=== PATIENT | female | born 1990 | race Caucasian/White ===

== ENCOUNTER 2025-07-15 22:58 | Observation (INO) | payer BC, SELFPAY ==
[2025-07-15 19:17] VITALS: BP 115/78
[2025-07-15 19:34] LABS: Hematocrit 39.6 % (37.0-47.0); Hemoglobin 13.6 g/dL (12.0-16.0); Mean Corp Hgb Conc. 34.3 g/dL (33.0-37.0); Mean Corpuscular Volume 85.3 fL (81.0-99.0); Nucleated Red Blood Cells % 0 %; Platelet Count 240 10^3/uL (130-400); Red Cell Dist. Width 13.3 % (11.5-14.5)
[2025-07-15 19:45] VITALS: BP 130/73
[2025-07-15 19:56] LABS: HCG, Serum Qualitative Screen Negative
[2025-07-15 20:00] VITALS: BP 136/65
[2025-07-15 20:00] LABS: ALT (SGPT) 15 U/L (0-35); AST (SGOT) 20 U/L (14-36); Albumin 4.8 g/dl (3.5-5.0); Alkaline Phosphatase 56 U/L (38-126); Blood Urea Nitrogen 13 mg/dl (7-17); Calcium 10.5 mg/dl (8.4-10.2); Carbon Dioxide 26 mmol/L (22-30); Chloride 101 mmol/L (98-107); Glucose 113 mg/dl (70-99); Lipase 27 U/L (23-300); Potassium 4.3 mmol/L (3.5-5.1); Sodium 135 mmol/L (135-145); Total Protein 7.7 g/dl (6.3-8.2); eGFR > 60.00
[2025-07-15 20:12] VITALS: BMI 29.3
--- NOTE | 2025-07-15 20:13 | ED.GENMED ---
History of Present Illness
<Rebecca Sen PA-C - Last Filed: 07/16/25 00:54>
General
Chief Complaint: Abdominal Symptoms
Source: patient
Exam Limitations: none
Time Seen by Provider: 07/15/25 19:51
History of Present Illness
History of Present Illness:
34yoF with no significant past medical history presenting with her for evaluation of abdominal pain. She initially started with generalized abdominal cramping yesterday afternoon. Pain has since migrated to the right lower quadrant and is
now severe. Pain is worse with any sort of movement. Pain radiates to the bilateral lower back. She has tried Pepto-Bismol without any relief. She is also having nausea and had vomited several times today. She reports decreased urination due to
poor p.o. intake but denies any UTI symptoms. She had some mild diarrhea earlier today. No fevers, vaginal bleeding, vaginal discharge. LMP was 1 week ago. Prior abdominal surgeries include section x3.
Past History
<Rebecca Sen PA-C - Last Filed: 07/16/25 00:54>
Past History
ED Past Medical History: None
Social History
Tobacco: Non-smoker
Living: with family
Phy Exam
<Rebecca Sen PA-C - Last Filed: 07/16/25 00:54>
Physical Exam
Physical Exam:
Patient in significant discomfort and moaning
General Physical Exam
General Presentation: moderate distress
General Skin: dry and cool
General Habitus: normal
General Mental: alert
ENT Exam
ENT Exam: normocephalic
Pulmonary Exam
Pulmonary Exam: no respiratory distress
Gastrointestinal Exam
Gastrointestinal Exam: soft, non distended and other (+Significant tenderness in RLQ with rebound tenderness )
Neurological Exam
Neurological Exam: alert
[place] Coma Scale
Eye Opening: Spontaneous
Verbal Response: Oriented
Motor Response: Obeys Commands
GCS Total Score: 15
Skin Exam
Skin Exam: normal color and warm/dry
Psychiatric Exam
Psychiatric Exam: normal mood/affect
Course
<Rebecca Sen PA-C - Last Filed: 07/16/25 00:54>
Orders/Labs/Results
Orders:
Orders
07/15/25 19:21
Test Result ONCE
07/15/25 19:27
Complete Blood Count/With Diff Urgent
Comprehensive Metabolic Panel Urgent
HCG, Serum Qualitative Screen Urgent
Lipase Urgent
07/15/25 20:12
CT Abd/pelvis W Iv Cont Urgent
Comment:
Reason For Exam: RLQ pain
0.9% Sodium Chloride 1000 ml [Nss] 1,000 ml IV BOLUS
HYDROmorphone [Dilaudid] 0.5 mg IV NOW STA
Ketorolac [Toradol] 15 mg IV NOW STA
Ondansetron Injectable [Zofran] 4 mg IV NOW STA
07/15/25 22:10
Piperacillin/Tazo 4.5 Gram [Zosyn] 4.5 gram in 100 ml IV NOW
07/15/25 22:36
Admit/Transfer Patient As Directed
Co-Sign Provider:
Level of Care: Observation services
Assign to:: Medical/Surgical
Physician / Group: dr liao
Diagnosis: acute appendicitis
PRN Pain Medication Management As Directed
May give lesser potent ordered pain med per pt: Yes
preference::
Protocol:: Medication orders for pain may be administered in a
manner that supports deferring to patient preference
when the pt is:
- Requesting an ordered lesser potent pain medication.
Least to most potent pain medications are defined
as: acetaminophen < NSAID < tramadol < opioids
(morphine, oxycodone, hydromorphone).
- Requesting a lesser dose of the same medication IF
ORDERED.
- Requesting a less intrusive route of administration
if both routes are prescribed by the provider (PO <
IV).
07/15/25 22:38
Code Status As Directed
Resuscitation Status: Full Code
07/15/25 23:38
0.9% Sodium Chloride 1000 ml [Nss] 1,000 ml IV 100 mls/hr
Acetaminophen [Tylenol] 650 mg PO Q4HPRN PRN
HYDROmorphone [Dilaudid] 0.5 mg IV Q2HPRN PRN
Ketorolac [Toradol] 10 mg IV Q6HPRN PRN
Ondansetron Injectable [Zofran] 4 mg IV Q6HPRN PRN
07/15/25 23:38
Activity As Directed
Activity Level: Out of Bed-Early Mobility
Anti-embolism (MARQUES) Hose As Directed
Type: Thigh high
Intake/ Output As Directed
Frequency: Per unit guidelines
Pneumatic Compression Sleeves As Directed
Type: Thigh high
Vital Signs As Directed
Frequency: Per unit guidelines
Rx Incentive Spirometry [RESP] Routine
Frequency: q1h while awake
# of times per hour: 10
DX Deep Vein Thrombosis Video Routine
07/16/25 04:00
Piperacillin/Tazo 3.375 Gram [Zosyn] 3.375 gram in 50 ml IV Q6H
07/16/25 Breakfast
NPO
Allow oral meds: Yes
Allow clear liquids: Sips of Clears
NPO with Ice Chips: Yes
NPO for procedure after (time): 07/16/25 0000
Complete Blood Count/With Diff IN AM
Comprehensive Metabolic Panel IN AM
Abnormal Lab Results
07/15/25
19:27
WBC 11.7 H 10^3/uL
(4.8-10.8)
MPV 11.0 H fL
(7.4-10.4)
Abs Immat Gran (auto) 0.1 H 10^3/uL
(0-0.05)
Absolute Neuts (auto) 9.9 H 10^3/uL
(1.4-6.5)
Neutrophils % 84.8 H %
(42.2-75.2)
Lymphocytes % 10.5 L %
(20.5-51.1)
Glucose 113 H mg/dl
(70-99)
Calcium 10.5 H mg/dl
(8.4-10.2)
07/15/25 19:27
07/15/25 19:27
Vital Signs
Initial and Last Documented VS:
Initial Vital Signs
Temp Pulse Resp BP Pulse Ox
97.2 F 83 22 115/78 98
07/15/25 19:17 07/15/25 19:17 07/15/25 19:17 07/15/25 19:17 07/15/25 19:17
Last Documented Vital Signs
Temp Pulse Resp BP Pulse Ox
100.4 F H 99 18 117/70 99
07/16/25 00:30 07/15/25 23:51 07/15/25 23:51 07/15/25 23:51 07/15/25 23:51
<Jason Alcazar MD - Last Filed: 07/15/25 23:10>
Orders/Labs/Results
Orders:
Orders
07/15/25 19:21
Test Result ONCE
07/15/25 19:27
Complete Blood Count/With Diff Urgent
Comprehensive Metabolic Panel Urgent
HCG, Serum Qualitative Screen Urgent
Lipase Urgent
07/15/25 20:12
CT Abd/pelvis W Iv Cont Urgent
Comment:
Reason For Exam: RLQ pain
0.9% Sodium Chloride 1000 ml [Nss] 1,000 ml IV BOLUS
HYDROmorphone [Dilaudid] 0.5 mg IV NOW STA
Ketorolac [Toradol] 15 mg IV NOW STA
Ondansetron Injectable [Zofran] 4 mg IV NOW STA
07/15/25 22:10
Piperacillin/Tazo 4.5 Gram [Zosyn] 4.5 gram in 100 ml IV NOW
07/15/25 22:36
Admit/Transfer Patient As Directed
Co-Sign Provider:
Level of Care: Observation services
Assign to:: Medical/Surgical
Physician / Group: dr liao
Diagnosis: acute appendicitis
PRN Pain Medication Management As Directed
May give lesser potent ordered pain med per pt: Yes
preference::
Protocol:: Medication orders for pain may be administered in a
manner that supports deferring to patient preference
when the pt is:
- Requesting an ordered lesser potent pain medication.
Least to most potent pain medications are defined
as: acetaminophen < NSAID < tramadol < opioids
(morphine, oxycodone, hydromorphone).
- Requesting a lesser dose of the same medication IF
ORDERED.
- Requesting a less intrusive route of administration
if both routes are prescribed by the provider (PO <
IV).
07/15/25 22:38
Code Status As Directed
Resuscitation Status: Full Code
07/15/25 23:38
0.9% Sodium Chloride 1000 ml [Nss] 1,000 ml IV 100 mls/hr
Acetaminophen [Tylenol] 650 mg PO Q4HPRN PRN
HYDROmorphone [Dilaudid] 0.5 mg IV Q2HPRN PRN
Ketorolac [Toradol] 10 mg IV Q6HPRN PRN
Ondansetron Injectable [Zofran] 4 mg IV Q6HPRN PRN
07/15/25 23:38
Activity As Directed
Activity Level: Out of Bed-Early Mobility
Anti-embolism (MARQUES) Hose As Directed
Type: Thigh high
Intake/ Output As Directed
Frequency: Per unit guidelines
Pneumatic Compression Sleeves As Directed
Type: Thigh high
Vital Signs As Directed
Frequency: Per unit guidelines
Rx Incentive Spirometry [RESP] Routine
Frequency: q1h while awake
# of times per hour: 10
DX Deep Vein Thrombosis Video Routine
07/16/25 04:00
Piperacillin/Tazo 3.375 Gram [Zosyn] 3.375 gram in 50 ml IV Q6H
07/16/25 Breakfast
NPO
Allow oral meds: Yes
Allow clear liquids: Sips of Clears
NPO with Ice Chips: Yes
NPO for procedure after (time): 07/16/25 0000
Complete Blood Count/With Diff IN AM
Comprehensive Metabolic Panel IN AM
Abnormal Lab Results
07/15/25
19:27
WBC 11.7 H 10^3/uL
(4.8-10.8)
MPV 11.0 H fL
(7.4-10.4)
Abs Immat Gran (auto) 0.1 H 10^3/uL
(0-0.05)
Absolute Neuts (auto) 9.9 H 10^3/uL
(1.4-6.5)
Neutrophils % 84.8 H %
(42.2-75.2)
Lymphocytes % 10.5 L %
(20.5-51.1)
Glucose 113 H mg/dl
(70-99)
Calcium 10.5 H mg/dl
(8.4-10.2)
07/15/25 19:27
07/15/25 19:27
Vital Signs
Initial and Last Documented VS:
Initial Vital Signs
Temp Pulse Resp BP Pulse Ox
97.2 F 83 22 115/78 98
07/15/25 19:17 07/15/25 19:17 07/15/25 19:17 07/15/25 19:17 07/15/25 19:17
Last Documented Vital Signs
Temp Pulse Resp BP Pulse Ox
100.4 F H 99 18 117/70 99
07/16/25 00:30 07/15/25 23:51 07/15/25 23:51 07/15/25 23:51 07/15/25 23:51
<Rebecca Sen PA-C - Last Filed: 07/16/25 00:54>
MDM/Problems Addressed
Differential Diagnosis Includes:
34yoF here with abd pain. Generalized pain yesterday, now migrated to RLQ. Worse with any type of movement. VSS. Patient in significant discomfort on initial exam with rebound tenderness. Differential diagnosis includes: Appendicitis, ovarian cyst,
kidney stone
Initial ED plan: Lab work obtained in triage. White count is mildly elevated 11.7. Remainder of labs normal and hCG testing negative. Will proceed with CT abdomen. IV Dilaudid
<Rebecca Sen PA-C - Last Filed: 07/16/25 00:54>
*Pulse Oximetry
SaO2: 99
Oxygen Mode of Delivery: Room air
Patient hypoxic: no
*Critical Care Note
Total Time (30-74mins, 75-104mins- exclusive of procedures): Not Applicable
<Rebecca Sen PA-C - Last Filed: 07/16/25 00:54>
Update Note
Update Note:
CT shows acute appendicitis. Case discussed with general surgeon, Dr. Liao. IV Zosyn ordered and patient admitted for further management.
ED Attending Note
<Rebecca Sen PA-C - Last Filed: 07/16/25 00:54>
-
Portions of this chart may have been created with voice recognition software.� Occasional wrong word or��sound alike� substitutions may have occurred due to the inherent limitations of voice recognition software.
<Jason Alcazar MD - Last Filed: 07/15/25 23:10>
ED Attending Note
Patient seen and examined by attending physician: Yes
ED Attending Note:
I have seen and evaluated the patient with a [id number] encounter. I have spoken to the advance practicer provider and involved in the medical history, the physical exam, medical decision making.
Evaluation and management service: agree unless noted differently below.
Results interpretation: agree unless noted differently below.
Focused HPI: 34-year-old female with no significant chronic medical issues presents for evaluation of abdominal pain with nausea and vomiting. Pain located in the right lower quadrant. Started yesterday and worse today. No similar symptoms in the
past.
Physical exam: Awake and alert, nontoxic. Vital signs normal. Abdomen soft, markedly tender in the right lower quadrant.
Medical Decision Makin-year-old female presents with right lower quadrant abdominal pain associated with nausea and vomiting. Labs here showed a leukocytosis with predominant neutrophils. Her hCG is negative. Her CT was concerning for
appendicitis. Admitted to surgical service. IV antibiotics and pain control in the meantime.
Discharge Plan
Departure
Patient Disposition: Admit
Date of Disposition: 07/15/25
Time of Disposition: 22:29
Presentation/result/management discussed w/ accepting MD/DO: Dr. Liao
Discharge Problem:
Acute appendicitis
Interventions
Interventions:
*General Assessment Last Done: 07/15/25 19:17
*Neglect/Abuse Screening Last Done: 07/15/25 19:17
*ED COVID-19 Vaccine History Last Done: 07/15/25 20:45
*ED Influenza Vaccine History Last Done: 07/15/25 20:45
[facility] Risk Assessment Tool Last Done: 07/15/25 20:45
*Risk Screen - Suicide (C-SSRS) Last Done: 07/15/25 19:17
*Nursing Disposition Last Done: 07/15/25 23:48
JN-Ilubzc-Nqwzoszype Assessment Last Done: 07/15/25 19:57
Discharge Date and Time
Discharge Date/Time: 07/15/25 23:48
[2025-07-15] MEDS: DILAUDID 0.5 MG IV ×2 (20:14→23:14)
[2025-07-15] MEDS: ZOFRAN 4 MG IV (20:15)
[2025-07-15] MEDS: TORADOL 15 MG IV (20:15)
[2025-07-15] MEDS: NSS 1000 IV (20:16)
[2025-07-15] MEDS: ZOSYN 100 IV (22:27)
--- NOTE | 2025-07-15 23:24 | HPS.HSE ---
Addendum entered and electronically signed by Sami Claire MD 07/16/25 09:29:
I saw and examined the patient.
The Dining Room Attendant's note was reviewed and I agree with the note.
Comment: Acute onset generalized abd pain with migration to rlq. Denies anorexia, denies f/c/n/v. Mild leukocytosis noted. CT c/w acute appendicitis. Informed consent obtained. OCTR for lap appy. IV abx.
Original Note:
Family Physician
-
Family Physician: NOT KNOW UNKNOWN - PT DOES
Chief Complaint
-
abd pain,bloating
History of Present Illness
34yoF with no significant past medical history presenting with her for evaluation of abdominal pain and bloating. She initially started with generalized abdominal cramping yesterday afternoon. Pain has since migrated to the right lower
quadrant and is now severe. Pain is worse with any sort of movement. Pain radiates to the bilateral lower back. She has tried Pepto-Bismol without any relief. She is also having nausea and had vomited several times today. She reports decreased
urination due to poor p.o. intake but denies any UTI symptoms. She had some mild diarrhea earlier today. Has had chills but No fevers, vaginal bleeding, vaginal discharge. LMP was 1 week ago. Prior abdominal surgeries include section
x3.
CT abd: IMPRESSION:
Acute appendicitis.
No CT evidence for perforation or periappendiceal abscess.
WBC 11.7 with left shift
pain better after dilaudid
Zosyn initiated in ED
Medical History
Past Medical History
Past Medical History: Reports None
Past Surgical History: Reports ( x3)
Social History
Tobacco: Non-smoker
Alcohol: Occasional
Drug: None
Personal:
Living: With Family
Employment: Employed
Family History
Family History: Not pertinent
Allergies / Home Medications
Allergies reflects when Allergies were last updated in [facility].
Home Medications with original date entered in [facility]
Allergy/Medication List:
Allergies
Allergy/AdvReac Type Severity Reaction Status Date / Time
chlorhexidine Allergy Rash Verified 07/15/25 19:17
Home Medications
denies medications
Review of Systems
-
History Source: Patient
A 12 point ROS was completed and negative except as noted: Yes
Constitutional: Reports Chills
EENT: Reports No Symptoms
Respiratory: Reports No Symptoms
Cardiac: Reports No Symptoms
Abdomen/GI: Reports Abdominal Pain (was 10/10 on arrival now 5/10 after meds), Nausea, Diarrhea (a couple times) and Anorexia
: Reports No Symptoms
Musculoskeletal: Reports No Symptoms
Skin: Reports No Symptoms
Neurological: Reports No Symptoms
Endocrine: Reports No Symptoms
Hematologic/Lymphatic: Reports No Symptoms
Psych: Reports No Symptoms
Physical Exam
Vital Signs
Vital Signs
Temp Pulse Resp BP Pulse Ox
97.2 F 88 14 136/65 98
07/15/25 19:17 07/15/25 23:15 07/15/25 23:15 07/15/25 20:00 07/15/25 23:15
Physical Exam
General: Well Developed, Well Nourished, No Apparent Distress, Comfortable, Pain (5/10) and Chills
HEENT: NormoCephalic and Moist mucous membranes
Respiratory: Clear and Non Labored Respirations
Cardiac: S1/S2 and Regular Rhythm
Breast: Deferred by me
GI: Soft
Rectal: Deferred by Provider
Genito-urinary: Deferred by me
Musculoskeletal: No Clubbing and No Cyanosis
Skin: Warm and Dry
Neuro: Awake, Alert, Oriented, AO x 3 and No Motor Deficits
Hematologic/Lymphatic: No Lymphadenopathy
Psych: Calm and Intact Judgment/Insight
Laboratory Results
-
07/15/25 19:27
07/15/25 19:
Laboratory Results
Total Bilirubin 0.6 mg/dl (0.2-1.3) 07/15/25 19:
AST 20 U/L (14-36) 07/15/25 19:
ALT 15 U/L (0-35) 07/15/25 19:
Alkaline Phosphatase 56 U/L (38-126) 07/15/25 19:
Lipase 27 U/L (23-300) 07/15/25 19:
Data Reviewed
-
CT Scan: Report Reviewed by me and Discussed with Physician
Lab Data: Labs Reviewed by me
Impression/Plan
-
IMPRESSION:
34 yo female with abd pain since yesterday found to have acute appendicitis w/o perforation
PLAN:
Admit to service of Dr Liao
Med surg obs
#acute appendicitis w/o perforation
-NPO x meds after midnight--> OR in am timing TBD
-ivf: nss@100
-cont zosyn q6h
-pain control: tylenol, dilaudid and toradol prn
-zofran prn
DVT prophylaxisis: scd
Full code
[2025-07-15 23:43] VITALS: BMI 29.0
[2025-07-15 23:51] VITALS: BP 117/70
[2025-07-16] VITALS (11 sets, daily range): BP systolic 87–110; BP diastolic 43–57; BMI 29.0
[2025-07-16] MEDS: TYLENOL 650 MG PO (00:33)
[2025-07-16] MEDS: NSS 1000 IV ×2 (00:34→11:00)
[2025-07-16] MEDS: ZOSYN 50 IV ×2 (03:22→15:06)
[2025-07-16] MEDS: TORADOL 10 MG IV (03:37)
--- NOTE | 2025-07-16 04:05 | PTCARENOTE ---
Patient was brought from ED at 2335 dx of acute appendicitis. C/o 4/10 pain to abdomen but stated it was manageable. VSS. Assessment as documented. Patient and spouse made aware of plan of care. Call barbosa within reach, bed in lowest position.
[2025-07-16 06:39] LABS: Hematocrit 35.0 % (37.0-47.0); Hemoglobin 12.1 g/dL (12.0-16.0); Mean Corp Hgb Conc. 34.6 g/dL (33.0-37.0); Mean Corpuscular Volume 86.8 fL (81.0-99.0); Nucleated Red Blood Cells % 0 %; Platelet Count 208 10^3/uL (130-400); Red Cell Dist. Width 13.5 % (11.5-14.5)
[2025-07-16] MEDS: DILAUDID 0.5 MG IV (07:08)
[2025-07-16] MEDS: ZOFRAN 4 MG IV (07:09)
[2025-07-16 07:12] LABS: ALT (SGPT) 13 U/L (0-35); AST (SGOT) 16 U/L (14-36); Albumin 3.6 g/dl (3.5-5.0); Alkaline Phosphatase 41 U/L (38-126); Blood Urea Nitrogen 11 mg/dl (7-17); Calcium 8.9 mg/dl (8.4-10.2); Carbon Dioxide 26 mmol/L (22-30); Chloride 104 mmol/L (98-107); Estimated Creatinine Clearance 116 ml/min; Glucose 115 mg/dl (70-99); Potassium 3.7 mmol/L (3.5-5.1); Sodium 135 mmol/L (135-145); Total Protein 6.1 g/dl (6.3-8.2); eGFR > 60.00
[2025-07-16] MEDS: ZOSYN IV (09:38)
--- NOTE | 2025-07-16 10:14 | W.IMMPOSTOP ---
Addendum entered and electronically signed by Sami Claire MD 07/16/25 10:17:
called, unable to reach, VM left
Original Note:
Surgical Immed Post Op Note
-
Primary Surgeon: Dakotah
Assisting: Robert HOLT
Pre-op Diagnosis: Acute appendicitis
Post-op Diagnosis: Same
Procedure Performed: Laparoscopic appendectomy
Anesthesia Type: GETA
Specimen / Cultures: Appendix
Estimated Blood Loss: 5cc
Complications: None immediate
Operative Findings: Inflamed appendix densely adherent to terminal ileum, pus in the right lower quadrant and pelvis
--- NOTE | 2025-07-16 10:15 | OR.RPT ---
Operative Report
Operative Report
Primary Surgeon: Dakotah
Assisting: Robert HOLT
Pre-op Diagnosis: Acute appendicitis
Post-op Diagnosis: Same
Procedure Performed: Laparoscopic appendectomy
Anesthesia Type: GETA
Specimen / Cultures: Appendix
Estimated Blood Loss: 5cc
Complications: None immediate
Operative Findings: Inflamed appendix densely adherent to terminal ileum, pus in the right lower quadrant and pelvis
Date of Surgery: 07/16/25
Indications: This 34F developed right lower quadrant abdominal pain and on workup was found to have acute appendicitis. Laparoscopic appendectomy was elected.
Description of procedure: The patient was placed on the operating table in the supine position. General anesthesia was induced. A time-out was completed verifying correct patient, procedure, site, positioning, and special equipment prior to
beginning this procedure. An orogastric tube was placed. The abdomen was prepped and draped in the usual sterile fashion. A stab incision was made in left upper quadrant and the Veress needle was inserted. Proper position was confirmed by aspiration
and saline meniscus test. The abdomen was insufflated with carbon dioxide to a pressure of 12 mmHg. The patient tolerated insufflation well.
A 5mm optical trocar was then inserted at the left lower quadrant. The laparoscope was inserted and the abdomen inspected. No injuries from initial trocar placement or Veress needle insertion were noted. Additional trocars were then inserted in the
following locations: a 12-mm trocar at the umbilicus and a 5-mm trocar midline in the suprapubic space. The abdomen was inspected and no abnormalities were found. The table was placed in the Trendelenburg position with the right side up. The tip of
the appendix was gently grasped with an atraumatic grasper and retracted toward the patient�s feet and abdominal wall. This maneuver exposed the appendiceal blood supply which was controlled with the Ligasure device. Following this, a laparoscopic
linear cutting stapler with a 45mm portillo load was deployed and used to transect the appendix at its base. The appendix was placed in an endoscopic retrieval bag, removed through the umbilical port, and passed off the table as a specimen.
We then turned our attention to the staple line, which was noted to be hemostatic. Pus was identified in the right lower quadrant and pelvis, this was suctioned and then the areas were irrigated thoroughly with sterile saline. The umbilical trocar
site was closed at the fascial level laparoscopically with 2-0 PDS under direct vision. Secondary trocars were removed under direct vision and noted to be hemostatic. The laparoscope was withdrawn and the abdomen was allowed to collapse. The skin
was closed with subcuticular sutures of 4-0 monocryl and topical skin adhesive. The orogastric tube was removed.
The patient tolerated the procedure well and was taken to the postanesthesia care unit in stable condition.
[2025-07-16] MEDS: SUBLIMAZE 25 MCG IV (11:11)
--- NOTE | 2025-07-16 11:42 | CM ---
Patient admitted under OBS, patient and spouse made aware of OBS status, and OBS letter not signed. Patient lives with spouse in a 2 story home, patient is independent with adl's and ambulation, no DME, patient drives, home today no needs.
Pharmacy: [facility] in [place].
== END 2025-07-16 16:00 | disposition home or self-care (01) ==
LOC: 2 SOUTH 22:58
PROVIDERS: Nurse Practitioner Family; Student in an Organized Health Care Education/Training Program; ADMITTING PHYSICIAN Surgery; EMERGENCY PHYSICIAN Emergency Medicine
DX: K35.80 Unspecified acute appendicitis (principal); R10.31 Right lower quadrant pain
CPT/HCPCS: 44970; 74177; 80053; 83690; 84703; 85025; 88304; 96361; 96365; 96375; 96376; 99285; G0378; Q9967